=== PATIENT | male | born 1930 | race Hispanic/Latino ===

== ENCOUNTER → 2020-05-20 | Day surgery (SDC) | payer MEDICARE ==
[2020-05-15 15:29] LABS: BASOPHILS % 0.5 % (0.0-1.0); EOSINOPHILS # (AUTO) 0.2 (0.0-0.4); HEMATOCRIT 32.2 % (38.2-49.6); HEMOGLOBIN 10.5 g/dL (14.0-18.0); LYMPHOCYTES % 24.7 % (18.0-39.1); MEAN CORPUSCULAR HGB CONC 32.6 g/dL (31-35); MEAN CORPUSCULAR VOLUME 98.2 fL (81-99); MONOCYTES # (AUTO) 0.6 (0.2-0.8); NEUTROPHILS # (AUTO) 5.1 (2.1-6.9); NEUTROPHILS % 64.5 % (38.7-80.0); PLATELET COUNT 154 x10e3/uL (140-360); RED BLOOD COUNT 3.28 x10e6/uL (4.3-5.7)
[2020-05-15 15:50] LABS: ALBUMIN 3.9 g/dL (3.5-5.0); ALBUMIN/GLOBULIN RATIO 1.3 (0.8-2.0); CALCIUM 8.8 mg/dL (8.4-10.2); CREATININE, SERUM 1.43 mg/dL (0.72-1.25)
[~2020-05-20] VITALS: Ht 177.8 cm; Wt 75.7 kg
[~2020-05-20] MED LIST: ALPRAZOLAM 0.5 MG TAB ONE; ATORVASTATIN CA20 MG PO; CARVEDILOL12.5 MG PO; DIPHENHYDRAMINE HCL 25 MG CAP ONE; FENTANYL CITRATE/PF 100MCG/2 ML INJ ONE; HEPARIN SOD/SOD CHLORIDE 2,000 ML ONE; IOPAMIDOL 370 MG/ML 200 ML INFUS..BTL INJ ONE; LIDOCAINE HCL 2% LOCAL 20 ML VIAL ONE; LISINOPRIL2.5 MG PO; MIDAZOLAM HCL 2 MG/2 ML VIAL ONE; SODIUM CHLORIDE 0.9% 1000ML 1,000 ML ONE
[2020-05-20 14:20] VITALS: BP 111/67
[2020-05-20 14:30] VITALS: BP 160/77
[2020-05-20 14:45] VITALS: BP 145/77
[2020-05-20 15:00] VITALS: BP 145/77
[2020-05-20 15:30] VITALS: BP 153/77
[2020-05-20 16:00] VITALS: BP 123/63
== END | disposition home or self-care (01) ==
LOC: CATH LAB 10:06
PROVIDERS: ATTEND Internal Medicine Interventional Cardiology
DX: I25.118 Atherosclerotic heart disease of native coronary artery with other forms of angina pectoris (principal); R94.39 Abnormal result of other cardiovascular function study; I11.0 Hypertensive heart disease with heart failure; I50.22 Chronic systolic (congestive) heart failure; Z01.812 Encounter for preprocedural laboratory examination; Z11.59 Encounter for screening for other viral diseases; Z95.810 Presence of automatic (implantable) cardiac defibrillator
CPT/HCPCS: 36415; 76937; 80053; 85025; 93454; C1769 ×2; C1887; J2001; J2250; J3010; J7030; Q9967; U0002; 99152